=== PATIENT | female | born 1980 | race Caucasian/White ===

== ENCOUNTER 2023-10-17 13:34 | Emergency (ER) | payer OTHER | END 2023-10-17 15:52 | disposition left against medical advice (07) | LOC: ED 13:34 | DX: Z53.21 Procedure and treatment not carried out due to patient leaving prior to being seen by health care provider (principal) ==

== ENCOUNTER 2024-01-23 21:46 | Emergency (ER) | payer OTHER ==
--- NOTE | 2024-01-23 21:49 | ERPHSYRPT ---
- History of Present Illness Time Seen by Provider: 01/23/24 21:49 Source: patient, family Exam Limitations: no limitations Physician History: This is a cachectic appearing 43-year-old white female patient who states that she has had a headache all day today. Around 8 PM she started having dizziness whenever she was lying flat. She also states that she has had some cold chills present. Approximately 4 hours prior to arrival, patient took Tylenol and Excedrin without much benefit. Patient denies chest pain. Patient denies shortness of breath. Patient denies abdominal pain. She has had no nausea vomiting or diarrhea symptoms. Timing/Duration: today Severity: mild Character of Deficits: none Deficits: no difficulties Baseline/Normal Cognition: alert oriented x 3 Current Cognition: alert oriented x 3 Baseline Gait: walks w/o assistance Associated Symptoms: other (Headache and dizziness when lying flat) Allergies/Adverse Reactions: No Known Drug Allergies Allergy (Verified 01/23/24 21:56) Travel Risk - International Travel Have you traveled outside of the country in past 3 weeks: No - Emerging Infectious Disease Are you exhibiting symptoms associated with any current EIDs: No - Review of Systems Constitutional: Chills Eyes: No Symptoms Ears, Nose, & Throat: No Symptoms Respiratory: No Symptoms Cardiac: No Symptoms Abdominal/Gastrointestinal: No Symptoms Genitourinary Symptoms: No Symptoms Musculoskeletal: No Symptoms Skin: No Symptoms Neurological: Headache Psychological: No Symptoms Endocrine: No Symptoms Hematologic/Lymphatic: No Symptoms Immunological/Allergic: No Symptoms All Other Systems: Reviewed and Negative - Past Medical History Pertinent Past Medical History: Yes - Nursing Vital Signs Nursing Vital Signs: Initial Vital Signs Temperature 97.4 F 01/23/24 21:57 Pulse Rate 73 01/23/24 21:57 Respiratory Rate 26 H 01/23/24 21:57 Blood Pressure 121/78 01/23/24 21:57 O2 Sat by Pulse Oximetry 100 01/23/24 21:57 Pain Scale Pain Intensity 9 - Sol Coma Scale Best Eye Response (Sol): (4) open spontaneously Best Verbal Response ([place]): (5) oriented Best Motor Response ([place]): (6) obeys commands [place] Total: 15 - Physical Exam General Appearance: no apparent distress, alert, anxiety, cachetic Eye Exam: bilateral eye: normal inspection, PERRL, EOMI Ears, Nose, Throat Exam: normal ENT inspection, moist mucous membranes Neck Exam: normal inspection, non-tender, supple, full range of motion Respiratory: normal breath sounds, lungs clear, No chest tenderness, No r espiratory distress Cardiovascular: regular rate/rhythm, normal heart sounds, normal peripheral pulses Gastrointestinal: soft, normal bowel sounds, No tenderness Pelvic Exam: not done Rectal Exam: not done Back Exam: normal inspection, normal range of motion, No CVA tenderness Extremity Exam: normal inspection, normal range of motion, pelvis stable Mental Status: alert, oriented x 3, cooperative blueprint maker Exam: normal hearing, normal speech, PERRL Coordination/Gait: normal finger to nose, normal gait, normal cerebellar function Motor/Sensory: no motor deficit, no sensory deficit, no pronator drift Skin Exam: normal color, warm, dry SpO2 Interpretation: normal O2 Delivery: Room Air - Course Nursing assessment & vital signs reviewed: Yes EKG Interpreted by Me: RATE (67), Sinus Rhythm, NORMAL AXIS, NORMAL INTERVALS, NORMAL QRS, Other (No acute ischemia on today's twelve-lead EKG. The QTc is 416) Ordered Tests: Active Orders 24 hr Category Date Time Status Cold Working Inspector STAT Care 01/23/24 22:39 Active EKG-ER Only STAT Care 01/23/24 22:39 Active IV Insertion STAT Care 01/23/24 22:39 Active HEAD WITHOUT CONTRAST [CT] Stat Exams 01/23/24 22:39 Completed CBC W DIFF Stat Lab 01/23/24 22:40 Completed CMP Stat Lab 01/23/24 22:40 Completed ETHYL ALCOHOL Stat Lab 01/23/24 22:40 Completed MAGNESIUM Stat Lab 01/23/24 22:40 Completed TROPONIN Q4H Lab 01/23/24 22:40 Completed TROPONIN Q4H Lab 01/24/24 02:45 Ordered TROPONIN Q4H Lab 01/24/24 06:45 Ordered UA W/RFX UR CULTURE Stat Lab 01/23/24 22:40 Completed Medication Summary Generic Name Dose Route Start Last Admin Trade Name Freq PRN Reason Stop Dose Admin Sodium Chloride 1,000 mls @ 100 mls/hr 01/23/24 22:45 01/23/24 23:39 Sodium Chloride 0.9% 1000 Ml IV 02/22/24 22:44 999 mls/hr .Q10H DAVID Infusion Discontinued Medications Generic Name Dose Route Start Last Admin Trade Name Freq PRN Reason Stop Dose Admin Meclizine HCl 25 mg 01/23/24 22:39 01/23/24 22:48 Meclizine Hcl 25 Mg Tablet PO 01/23/24 22:40 25 mg STAT ONE Administration Meclizine HCl Confirm 01/23/24 22:43 Meclizine Hcl 25 Mg Tablet Administered 01/23/24 22:44 Dose 25 mg .ROUTE .STK-MED ONE Ondansetron HCl 4 mg 01/23/24 22:39 01/23/24 22:48 Ondansetron Hcl 4 Mg/2 Ml Vial IV 01/23/24 22:40 4 mg STAT ONE Administration Ondansetron HCl Confirm 01/23/24 22:43 Ondansetron Hcl 4 Mg/2 Ml Vial Administered 01/23/24 22:44 Dose 4 mg .ROUTE .STK-MED ONE Lab/Rad Data: Laboratory Result Diagrams 01/23/24 22:40 01/23/24 22:40 Laboratory Results 01/23/24 01/23/24 01/23/24 Range/Units 22:40 22:40 22:40 WBC 7.8 (3.98-10.04) x10^3/uL RBC 4.15 (3.93-5.22) x10^6/uL Hgb 13.0 (11.2-15.7) g/dL Hct 39.4 (34.1-44.9) % MCV 94.9 H (79.4-94.8) fL MCH 31.3 (25.6-32.2) pg MCHC 33.0 (32.2-35.5) g/dL RDW 13.2 (11.7-14.4) % Plt Count 209 (182-369) x10^3/uL MPV 10.0 (9.4-12.3) fL Gran % 61.2 (34.0-71.1) % Immature Gran % (Auto) 0.3 (0.001-0.429) % Nucleat RBC Rel Count 0.0 (0.00-0.2) % Eos # (Auto) 0.10 (0.04-0.36) x10^3/uL Immature Gran # (Auto) 0.02 (0.001-0.031) x10^3u/L Absolute Lymphs (auto) 2.12 (1.18-3.74) x10^3/uL Absolute Monos (auto) 0.71 (0.24-0.86) x10^3/uL Absolute Nucleated RBC 0.00 (0.00-0.012) x10^3u/L Lymphocytes % 27.1 (19.3-51.7) % Monocytes % 9.1 (4.7-12.5) % Eosinophils % 1.3 (0.7-5.8) % Basophils % 1.0 (0.1-1.2) % Absolute Granulocytes 4.79 (1.56-6.13) x10^3/uL Basophils # 0.08 (0.01-0.08) x10^3/uL Sodium 142 (135-145) mmol/L Potassium 3.8 (3.5-5.1) mmol/L Chloride 108 H (98-107) mmol/L Carbon Dioxide 30 (22-30) mmol/L Anion Gap 8.5 (5-15) MEQ/L BUN 16 (7-17) mg/dL Creatinine 0.81 (0.52-1.04) mg/dL Estimated GFR 91.7 ML/MIN Glucose 107 H (74-106) mg/dL Calcium 9.0 (8.4-10.2) mg/dL Magnesium 2.0 (1.6-2.3) mg/dL Total Bilirubin 0.30 (0.2-1.3) mg/dL AST 26 (14-36) U/L ALT 21 (0-35) U/L Alkaline Phosphatase 81 (38-126) U/L Troponin I < 0.012 (0.000-0.033) ng/mL Serum Total Protein 5.9 L (6.3-8.2) g/dL Albumin 3.7 (3.5-5.0) g/dL Urine Color (Yellow) Urine Appearance (Clear) Urine pH (4.6-8.0) Ur Specific [place] (1.005-1.030) Urine Protein (Negative) Urine Glucose (UA) (Negative) mg/dL Urine Ketones (Negative) Urine Blood (Negative) Urine Nitrite (Negative) Urine Bilirubin (Negative) Urine Urobilinogen (0.2) mg/dL Ur Leukocyte Esterase (Negative) U Hyaline Cast (Auto) (0-2) /LPF Urine Microscopic RBC (0-5) /HPF Urine Microscopic WBC (0-5) /HPF Ur Epithelial Cells (None Seen) /HPF Urine Bacteria (None Seen) /HPF Urine Culture Reflexed (NO) Ethyl Alcohol < 10 (0-10) mg/dL 01/23/24 Range/Units 22:40 WBC (3.98-10.04) x10^3/uL RBC (3.93-5.22) x10^6/uL Hgb (11.2-15.7) g/dL Hct (34.1-44.9) % MCV (79.4-94.8) fL MCH (25.6-32.2) pg MCHC (32.2-35.5) g/dL RDW (11.7-14.4) % Plt Count (182-369) x10^3/uL MPV (9.4-12.3) fL Gran % (34.0-71.1) % Immature Gran % (Auto) (0.001-0.429) % Nucleat RBC Rel Count (0.00-0.2) % Eos # (Auto) (0.04-0.36) x10^3/uL Immature Gran # (Auto) (0.001-0.031) x10^3u/L Absolute Lymphs (auto) (1.18-3.74) x10^3/uL Absolute Monos (auto) (0.24-0.86) x10^3/uL Absolute Nucleated RBC (0.00-0.012) x10^3u/L Lymphocytes % (19.3-51.7) % Monocytes % (4.7-12.5) % Eosinophils % (0.7-5.8) % Basophils % (0.1-1.2) % Absolute Granulocytes (1.56-6.13) x10^3/uL Basophils # (0.01-0.08) x10^3/uL Sodium (135-145) mmol/L Potassium (3.5-5.1) mmol/L Chloride (98-107) mmol/L Carbon Dioxide (22-30) mmol/L Anion Gap (5-15) MEQ/L BUN (7-17) mg/dL Creatinine (0.52-1.04) mg/dL Estimated GFR ML/MIN Glucose (74-106) mg/dL Calcium (8.4-10.2) mg/dL Magnesium (1.6-2.3) mg/dL Total Bilirubin (0.2-1.3) mg/dL AST (14-36) U/L ALT (0-35) U/L Alkaline Phosphatase (38-126) U/L Troponin I (0.000-0.033) ng/mL Serum Total Protein (6.3-8.2) g/dL Albumin (3.5-5.0) g/dL Urine Color Yellow (Yellow) Urine Appearance Turbid A (Clear) Urine pH 7.5 (4.6-8.0) Ur Specific [place] >=1.030 A (1.005-1.030) Urine Protein Trace A (Negative) Urine Glucose (UA) Negative (Negative) mg/dL Urine Ketones Trace A (Negative) Urine Blood Negative (Negative) Urine Nitrite Negative (Negative) Urine Bilirubin Negative (Negative) Urine Urobilinogen 1.0 A (0.2) mg/dL Ur Leukocyte Esterase Negative (Negative) U Hyaline Cast (Auto) NONE SEEN (0-2) /LPF Urine Microscopic RBC 0-2 (0-5) /HPF Urine Microscopic WBC 0-2 (0-5) /HPF Ur Epithelial Cells Rare (None Seen) /HPF Urine Bacteria None Seen (None Seen) /HPF Urine Culture Reflexed NO (NO) Ethyl Alcohol (0-10) mg/dL - Progress Progress: improved, re-examined Progress Note: 01/23/24 23:27 My medical decision making and the assignment of moderate complexity to this patient's medical issue today is based on review of the patient's past medical history, review of the patient's medication list, reviewed patient drug allergy list, history present illness and physical findings on examination. The workup in this patient includes CT scan of the head, twelve-lead EKG, urinalysis, CBC, CMP, Differential diagnosis includes but is not limited to intracranial abnormality, arrhythmia abnormality, electrolyte abnormality, dehydration, urinary tract infection, 01/24/24 00:52 I interpreted the patient's laboratory data results. Based on the laboratory data results, there are no acute or emergent medical issues. CT scan of the head without contrast was interpreted by the radiologist and I reviewed the impression. Impression states no acute intracranial abnormality. No calvarium fracture. Counseled pt/family regarding: lab results, diagnosis, need for follow-up, rad results Medical Desision Making - Diagnostic Testing Diagnostic test were ordered, analyzed, and reviewed by me: Yes Radiological Interpretation: Reviewed by me, Teleradiologist Report - Risk of complications Low Risk: Low risk of morbidity from additional dx testing or treatment - Departure Departure Disposition: Home Clinical Impression: Headache, Dizziness Condition: Stable Critical Care Time: No Referrals: DOCTOR,NO FAMILY [Primary Care Provider] - Follow up/PCP as directed Additional Instructions: Drink plenty of fluids. Use Tylenol and ibuprofen for pain control if there are no contraindications to do so. Call your primary care provider today, 01/24/2024, to make arranges for follow-up appointment to be seen in the next 5 to 7 days.
[2024-01-23 22:07] VITALS: TEMP 97.4
[2024-01-23] MEDS ORDERED: Zofran 4 MG/2 ML VIAL ONE (22:43)
[2024-01-23] MEDS ORDERED: ANTIVERT 25 MG ONE (22:43)
[2024-01-23] MEDS ORDERED: Sodium Chloride 0.9% 1000 ML 1,000 ML ONE (22:43)
[2024-01-23] MEDS: ANTIVERT 25 MG PO ONE (22:48)
[2024-01-23] MEDS: Zofran 4 MG/2 ML VIAL IV ONE (22:48)
[2024-01-23] MEDS: Sodium Chloride 0.9% 1000 ML 1,000 ML IV SCH (22:48)
[2024-01-23 22:55] LABS: Absolute Neutrophil Ct (ANC) 4.79 x10^3/uL (1.56-6.13); Basophil (Absolute #) 0.08 x10^3/uL (0.01-0.08); Eosinophil % 1.3 % (0.7-5.8); Hematocrit 39.4 % (34.1-44.9); IMMATURE GRAN # 0.02 x10^3u/L (0.001-0.031); IMMATURE GRAN % 0.3 % (0.001-0.429); Lymphocyte (Absolute #) 2.12 x10^3/uL (1.18-3.74); Lymphocytes % 27.1 % (19.3-51.7); Mean Cell Volume 94.9 fL (79.4-94.8); Mean Corpuscular Hemoglobin 31.3 pg (25.6-32.2); Monocyte (Absolute #) 0.71 x10^3/uL (0.24-0.86); Monocytes % 9.1 % (4.7-12.5); Neutrophil % 61.2 % (34.0-71.1); Platelet Count 209 x10^3/uL (182-369); Red Blood Count 4.15 x10^6/uL (3.93-5.22); Red Cell Distribution Width 13.2 % (11.7-14.4); White Blood Count 7.8 x10^3/uL (3.98-10.04)
[2024-01-23 23:04] LABS: Appearance Turbid (Clear); Bacteria None Seen /HPF (None Seen); Bilirubin Negative (Negative); Blood Negative (Negative); Epithelial Cells Rare /HPF (None Seen); Glucose, Urine Negative (Negative); Hyaline Casts NONE SEEN /LPF (0-2); Ketones Trace (Negative); Leukocyte Esterase Negative (Negative); Nitrite Negative (Negative); Ph 7.5 (4.6-8.0); Protein,Urine Dip Trace (Negative); RBC 0-2 /HPF (0-5); Specific Gravity >=1.030 (1.005-1.030); WBC 0-2 /HPF (0-5)
[2024-01-23 23:06] LABS: ADD URINE CULTURE? NO (NO)
[2024-01-23 23:16] LABS: ALBUMIN 3.7 g/dL (3.5-5.0); ALKALINE PHOSPHATASE 81 U/L (38-126); ANION GAP 8.5 MEQ/L (5-15); BLOOD UREA NITROGEN 16 mg/dL (7-17); CHLORIDE 108 mmol/L (98-107); Carbon Dioxide 30 mmol/L (22-30); Creatinine 1 0.81 mg/dL (0.52-1.04); EST GLOMERULAR FILTRATION RATE 91.7 ML/MIN; ETHYL ALCOHOL < 10 mg/dL (0-10); Glucose 107 mg/dL (74-106); Potassium 3.8 mmol/L (3.5-5.1); SGOT/AST 26 U/L (14-36); SGPT/ALT 21 U/L (0-35); SODIUM 142 mmol/L (135-145); Total Protein 5.9 g/dL (6.3-8.2)
--- NOTE | 2024-01-24 00:45 | XRAY ---
CLINICAL HISTORY: Dizziness COMPARISON: NA TECHNIQUE: Axial non-contrast CT scan of the brain was performed from the skull base to the high parietal region. One of the following dose reduction techniques were utilized for this exam: Automated exposure control, adjustment of the mA and/or kV according to patient size, use of iterative reconstruction. CTDI: 53.92mGy , DLP: 1016.25mGy-cm. FINDINGS: Brain Parenchyma: Normal attenuation of the cerebral hemispheres, cerebellum, and brainstem. No evidence of acute infarct, hemorrhage, or mass effect. No abnormal areas of hypo- or hyperattenuation. Ventricular System: Ventricles are normal in size and configuration. No evidence of hydrocephalus or ventricular enlargement. Subarachnoid Spaces: Normal sulci and cisterns. No evidence of subarachnoid hemorrhage or extra-axial fluid collections. Cerebellum and Brainstem: Normal size and signal. No masses, lesions, or areas of abnormal signal. Orbits: Normal appearance of the globes, optic nerves, and extraocular muscles. No evidence of orbital masses or abnormal signal. Sinuses: Clear paranasal sinuses. No evidence of sinusitis or mucosal thickening. Mastoid Air Cells: Clear mastoid air cells. No evidence of mastoiditis. Skull and Meninges: Normal skull morphology. No evidence of meningeal thickening. IMPRESSION: No evidence of intracranial hematoma or established infarct in the current study No evidence of calvarial fractures. Electronically Signed by: Isatu Briscoe MD. (01/24/2024 00:40:59 EDT)
[2024-01-24 01:04] VITALS: BP 111/71; PULSE 64; RESP 17; O2SAT 99
== END 2024-01-24 01:23 | disposition home or self-care (01) ==
LOC: ED 21:46
DX: R51.9 Headache, unspecified (principal); R42 Dizziness and giddiness
CPT/HCPCS: 36000; 36415; 70450; 80053; 81001; 82077; 83735; 84484; 85025; 93005; 93041; 96374; 99284; J2405; A9270-GY

== ENCOUNTER 2024-07-23 17:23 | Emergency (ER) | payer OTHER ==
[2024-07-23 17:45] VITALS: TEMP 98
[2024-07-23 18:04] LABS: BASOPHIL % 1.2 % (0.1-1.2); Basophil (Absolute #) 0.08 x10^3/uL (0.01-0.08); Eosinophil % 2.5 % (0.7-5.8); Eosinophil (Absolute #) 0.16 x10^3/uL (0.04-0.36); Hematocrit 41.6 % (34.1-44.9); IMMATURE GRAN # 0.02 x10^3u/L (0.001-0.031); IMMATURE GRAN % 0.3 % (0.001-0.429); Lymphocyte (Absolute #) 1.54 x10^3/uL (1.18-3.74); Lymphocytes % 23.8 % (19.3-51.7); Mean Cell Volume 92.2 fL (79.4-94.8); Mean Corpuscular Hgb Concent. 33.7 g/dL (32.2-35.5); Mean Platelet Volume 10.1 fL (9.4-12.3); Monocyte (Absolute #) 0.76 x10^3/uL (0.24-0.86); Monocytes % 11.8 % (4.7-12.5); Neutrophil % 60.4 % (34.0-71.1); Platelet Count 169 x10^3/uL (182-369); Red Blood Count 4.51 x10^6/uL (3.93-5.22); Red Cell Distribution Width 13.9 % (11.7-14.4); White Blood Count 6.5 x10^3/uL (3.98-10.04)
[2024-07-23 18:20] LABS: ALBUMIN 4.4 g/dL (3.5-5.0); ANION GAP 9.9 MEQ/L (5-15); BILIRUBIN,TOTAL 0.6 mg/dL (0.2-1.3); Calcium 9.3 mg/dL (8.4-10.2); Creatinine 1 0.56 mg/dL (0.52-1.04); EST GLOMERULAR FILTRATION RATE 114.6 ML/MIN; Potassium 4.4 mmol/L (3.5-5.1); Total Protein 6.7 g/dL (6.3-8.2)
--- NOTE | 2024-07-23 18:50 | ERPHSYRPT ---
- History of Present Illness Time Seen by Provider: 07/23/24 18:40 Source: patient Exam Limitations: no limitations Patient Subjective Stated Complaint: C/O chest pain since 11am yesterday Triage Nursing Assessment: Patient ambulated back to ER. She is alert and oriented; anxious. No SOB. Skin tone normal. No edema. Timing/Duration: today Severity: mild Associated Symptoms: chest pain Allergies/Adverse Reactions: No Known Drug Allergies Allergy (Verified 07/23/24 17:31) Home Medications: Gabapentin [Neurontin ] 100 mg PO DAILY 07/23/24 [History] Hx Tetanus, Diphtheria Vaccination/Date Given: Yes Hx Influenza Vaccination/Date Given: Yes Hx Pneumococcal Vaccination/Date Given: No Immunizations Up to Date: Yes Travel Risk - International Travel Have you traveled outside of the country in past 3 weeks: No - Emerging Infectious Disease Are you exhibiting symptoms associated with any current EIDs: No - Review of Systems Constitutional: No Symptoms Eyes: No Symptoms Ears, Nose, & Throat: No Symptoms, Throat Swelling Cardiac: Chest Pain Abdominal/Gastrointestinal: No Symptoms Genitourinary Symptoms: No Symptoms - Past Medical History Pertinent Past Medical History: Yes Neurological History: Migraines ENT History: No Pertinent History Cardiac History: No Pertinent History Respiratory History: No Pertinent History Endocrine Medical History: No Pertinent History Musculoskeletal History: Fractures GI Medical History: No Pertinent History History: No Pertinent History Psycho-Social History: Eating Disorders, Panic Disorder Female Reproductive Disorders: No Pertinent History Other Medical History: skin ca, CP, anorexia - Past Surgical History Past Surgical History: Yes Neuro Surgical History: No Pertinent History Cardiac: No Pertinent History Respiratory: No Pertinent History Gastrointestinal: No Pertinent History Genitourinary: No Pertinent History Musculoskeletal: Orthopedic Surgery Female Surgical History: Tubal Ligation - Female History Hx Last Menstrual Period: post menopause Hx Now: No - Social History Smoking Status: Current every day smoker How long have you smoked: 28 years Exposure to second hand smoke: Yes Drug Use: none - Social Determinants of Health Will the patient participate in the screening: Declined to provide Do you worry about a steady place to live?: No In the past 12 months,have you had to go without utilities?: No Transportation Issues: No Has anyone in your support network made you feel unsafe?: No Have you or anyone in your house had to go without enough: No - Nursing Vital Signs Nursing Vital Signs: Initial Vital Signs Temperature 98 F 07/23/24 17:24 Pain Scale Pain Intensity 9 - Physical Exam General Appearance: no apparent distress Eye Exam: PERRL/EOMI Ears, Nose, Throat Exam: normal ENT inspection Neck Exam: normal inspection Respiratory Exam: normal breath sounds Cardiovascular Exam: regular rate/rhythm Gastrointestinal/Abdomen Exam: soft, tenderness (patient has mild diffuse te nderness) SpO2: 100 Ordered Tests: Active Orders 24 hr Category Date Time Status Engine Lathe Set Up Operator STAT Care 07/23/24 17:41 Active EKG-ER Only STAT Care 07/23/24 17:41 Active ABDOMEN AND PELVIS W CONTRAST [CT] Stat Exams 07/23/24 19:44 Ordered CHEST 1 VIEW (PORTABLE) Stat Exams 07/23/24 17:41 Taken CHEST WITH CONTRAST [CT] Stat Exams 07/23/24 19:44 Ordered CBC W DIFF Stat Lab 07/23/24 17:55 Completed CMP Stat Lab 07/23/24 17:55 Completed TROPONIN Q4H Lab 07/23/24 17:55 Completed TROPONIN Q4H Lab 07/23/24 21:45 Ordered TROPONIN Q4H Lab 07/24/24 01:45 Ordered Lab/Rad Data: Laboratory Result Diagrams 07/23/24 17:55 07/23/24 17:55 Laboratory Results 07/23/24 07/23/24 07/23/24 Range/Units 17:55 17:55 17:55 WBC 6.5 (3.98-10.04) x10^3/uL RBC 4.51 (3.93-5.22) x10^6/uL Hgb 14.0 (11.2-15.7) g/dL Hct 41.6 (34.1-44.9) % MCV 92.2 (79.4-94.8) fL MCH 31.0 (25.6-32.2) pg MCHC 33.7 (32.2-35.5) g/dL RDW 13.9 (11.7-14.4) % Plt Count 169 L (182-369) x10^3/uL MPV 10.1 (9.4-12.3) fL Gran % 60.4 (34.0-71.1) % Immature Gran % (Auto) 0.3 (0.001-0.429) % Nucleat RBC Rel Count 0.0 (0.00-0.2) % Eos # (Auto) 0.16 (0.04-0.36) x10^3/uL Immature Gran # (Auto) 0.02 (0.001-0.031) x10^3u/L Absolute Lymphs (auto) 1.54 (1.18-3.74) x10^3/uL Absolute Monos (auto) 0.76 (0.24-0.86) x10^3/uL Absolute Nucleated RBC 0.00 (0.00-0.012) x10^3u/L Lymphocytes % 23.8 (19.3-51.7) % Monocytes % 11.8 (4.7-12.5) % Eosinophils % 2.5 (0.7-5.8) % Basophils % 1.2 (0.1-1.2) % Absolute Granulocytes 3.90 (1.56-6.13) x10^3/uL Basophils # 0.08 (0.01-0.08) x10^3/uL Sodium 139 (135-145) mmol/L Potassium 4.4 (3.5-5.1) mmol/L Chloride 104 (98-107) mmol/L Carbon Dioxide 29 (22-30) mmol/L Anion Gap 9.9 (5-15) MEQ/L BUN 10 (7-17) mg/dL Creatinine 0.56 (0.52-1.04) mg/dL Estimated GFR 114.6 ML/MIN Glucose 90 (74-106) mg/dL Calcium 9.3 (8.4-10.2) mg/dL Total Bilirubin 0.60 (0.2-1.3) mg/dL AST 28 (14-36) U/L ALT 19 (0-35) U/L Alkaline Phosphatase 80 (38-126) U/L Troponin I < 0.012 (0.000-0.033) ng/mL Serum Total Protein 6.7 (6.3-8.2) g/dL Albumin 4.4 (3.5-5.0) g/dL - Progress Progress Note: . . Patient was seen and evaluated for chest pain labs were obtained chest x-ray was obtained chest x-ray suggestive of COPD she was updated with the results of her labs and chest x-ray however she now states that her pain is radiating from her chest into her abdomen. I will order a CT of the chest abdomen pelvis and care of this patient will be transferred to Dr. Munson at 7:[address] is pending and repeat troponin is pending 07/23/24 19:46 - Departure Clinical Impression: Chest pain, Abdominal pain Condition: Stable Critical Care Time: No Referrals: DOCTOR,NO FAMILY [NON-STAFF PHY W/O PRIVILEGES] - Follow up/PCP as directed
[2024-07-23 21:28] VITALS: O2SAT 95
[2024-07-23 22:07] VITALS: BP 104/70; PULSE 69; RESP 20
--- NOTE | 2024-07-24 08:50 | XRAY ---
Indication: Chest and abdomen pain. Multiple contiguous axial images obtained through the chest using 80 cc Isovue 370 contrast and PE protocol. Comparison: None Good opacification pulmonary arteries to includes the lobar and segmental branches. No pulmonary embolus. Heart not enlarged. Aorta is normal in course and caliber. No pathologic mediastinal/hilar lymphadenopathy. Lungs demonstrates mild pulmonary emphysema. No suspicious pulmonary mass/nodule, infiltrate, effusion, or pneumothorax. Bony thorax intact. CT abdomen/pelvis reported separately. Impression: Negative pulmonary embolus. Pulmonary emphysema. Remaining CT chest with contrast exam is negative.
--- NOTE | 2024-07-24 08:52 | XRAY ---
Indication: Chest and abdomen pain. Multiple contiguous axial images obtained through the abdomen and pelvis using 80 cc Isovue 370 contrast and PE protocol. Comparison: None CT chest reported separately. Noncontrasted stomach and bowel loops appear nonobstructed. Appendix not visualized. Gallbladder contracted without gallstones. No free fluid/air. Remaining liver, pancreas, spleen, adrenal glands, kidneys, ureters, bladder, uterus, and aorta are unremarkable. No pathologic retroperitoneal lymphadenopathy. Osseous structures intact. Incidental bilateral L5 spondylolysis with 1 mm listhesis. No ventral or inguinal hernias. Impression: L5 spondylolysis with minimal grade [address] abdomen/pelvis with contrast exam is negative.
--- NOTE | 2024-07-24 09:04 | XRAY ---
Indication: Chest pain. Comparison: October 17, 2023 Portable chest remains hyperinflated and clear. Heart not enlarged. Bony thorax intact. No new/acute findings.
== END 2024-07-23 23:05 | disposition home or self-care (01) ==
LOC: ED 17:23
DX: R07.9 Chest pain, unspecified (principal); R10.9 Unspecified abdominal pain; Z79.899 Other long term (current) drug therapy; Z72.0 Tobacco use
CPT/HCPCS: 36415; 71045; 71260; 74177; 80053; 84484; 85025; 93005; 93041; 99284; 99285